=== PATIENT | male | born 1955 | race Caucasian/White ===

== ENCOUNTER 2018-07-03 00:24 | Inpatient (IN) | payer BC ==
[~2018-07-03] VITALS: Ht 180.3 cm; Wt 182.1 kg
[2018-07-03] MEDS: LACTATED RINGER'S 1,000 ML IV SCH
[2018-07-03] MEDS ORDERED: KETOROLAC TROMETHAMINE 30 MG/ML VIAL IV STA (00:35)
[2018-07-03] MEDS ORDERED: SODIUM CHLORIDE 0.9% 1000ML 1,000 ML IV STA (00:35)
[2018-07-03] MEDS ORDERED: DONNATAL/LIDOCAINE/MAALOX 30 ML SUSP PO SCH (01:00)
[2018-07-03 01:12] LABS: BASOPHILS % 0.2 % (0.0-1.0); HEMATOCRIT 45.9 % (38.2-49.6); HEMOGLOBIN 14.2 g/dL (14.0-18.0); LYMPHOCYTES # (AUTO) 0.7 (1.0-3.2); LYMPHOCYTES % 7.4 % (18.0-39.1); MEAN CORPUSCULAR HEMOGLOBIN 27.2 pg (28-32); MEAN CORPUSCULAR HGB CONC 30.9 g/dL (31-35); MEAN CORPUSCULAR VOLUME 87.8 fL (81-99); MONOCYTES # (AUTO) 0.5 (0.2-0.8); MONOCYTES % 4.8 % (4.4-11.3); NEUTROPHILS # (AUTO) 8.6 (2.1-6.9); NEUTROPHILS % 87.4 % (38.7-80.0); PLATELET COUNT 247 x10e3/uL (140-360); RED BLOOD COUNT 5.23 x10e6/uL (4.3-5.7); RED CELL DISTRIBUTION WIDTH 15.9 % (11.7-14.4)
[2018-07-03 01:20] LABS: CLARITY,URINE CLEAR (CLEAR); COLOR,URINE YELLOW (YELLOW); LEUKOCYTE ESTERASE ,URINE NEGATIVE (NEGATIVE); NITRITE,URINE NEGATIVE (NEGATIVE); PROTEIN,URINE DIPSTICK NEGATIVE (NEGATIVE)
[2018-07-03 01:21] LABS: BILIRUBIN,URINE NEGATIVE (NEGATIVE); KETONES,URINE NEGATIVE (NEGATIVE); URINE UROBILINOGEN 0.2 mg/dL (0.2 - 1)
[2018-07-03 01:33] LABS: ALANINE AMINOTRANSFERASE 117 IU/L (0-55); ALBUMIN 3.9 g/dL (3.5-5.0); ALBUMIN/GLOBULIN RATIO 1.2 (0.8-2.0); ALKALINE PHOSPHATASE 99 IU/L (40-150); ANION GAP 17.5 mmol/L (8-16); BLOOD UREA NITROGEN 22 mg/dL (7-26); BUN/CREATININE RATIO 17 (6-25); CALCIUM 9.9 mg/dL (8.4-10.2); CARBON DIOXIDE 22 mmol/L (22-29); CHLORIDE 105 mmol/L (98-107); CREATINE KINASE 118 IU/L (30-200); CREATININE, SERUM 1.29 mg/dL (0.72-1.25); EST GLOMERULAR FILTRATION RATE 56 ML/MIN (60-); GLUCOSE 160 mg/dL (74-118); POTASSIUM 4.5 mmol/L (3.5-5.1); SODIUM 140 mmol/L (136-145)
[2018-07-03] MEDS ORDERED: BELLADONNA ALK/PHENOBARBITAL 5 ML UDC ONE (01:44)
[2018-07-03] MEDS ORDERED: LIDOCAINE VISC 2% SOLN 15 ML UDC ONE (01:44)
[2018-07-03] MEDS ORDERED: MAGNESIUM/ALUMINUM/SIMETHICONE 30 ML UDC ONE (01:45)
[2018-07-03 01:47] LABS: LIPASE > 1200 U/L (8-78)
[2018-07-03 01:50] LABS: BACTERIA,URINE RARE /HPF; EPITHELIAL CELLS,URINE RARE /LPF; RBC,URINE 0-5 /HPF (0-5); WBC,URINE (MAN) 0-5 /HPF (0-5)
[2018-07-03] MEDS ORDERED: ONDANSETRON HCL INJ 2 MG/ML VIAL IV STA (01:51)
--- NOTE | 2018-07-03 02:00 | NUR ---
PT TO CT AT THIS TIME.
[2018-07-03] MEDS ORDERED: IOPAMIDOL 370 MG/ML 200 ML INFUS..BTL INJ ONE (02:35)
[2018-07-03] MEDS ORDERED: SODIUM CHLORIDE 0.9% 50ML 50 ML ONE (02:35)
--- NOTE | 2018-07-03 02:39 | Diagnostic Imaging Report ---
EXAM: CT ABDOMEN AND PELVIS with IV CONTRAST DATE: 07/03/2018 12:35 AM Time stamp on Exam: 0223 hours INDICATION: Abdominal pain, diarrhea COMPARISON: None TECHNIQUE: The abdomen and pelvis were scanned using a multidetector helical scanner. Coronal and sagittal reformations were obtained. Dose modulation, iterative reconstruction, and/or weight based adjustment of the mA/kV was utilized to reduce the radiation dose to as low as reasonably achievable. Routine protocol performed. IV Contrast: 100 cc Isovue-370 Oral Contrast: None FINDINGS: LOWER THORAX: No consolidations LIVER: No masses BILIARY: Small layering gallstones. SPLEEN: No masses PANCREAS: Edematous pancreas with adjacent inflammation. No organized fluid collections. ADRENALS: No nodules KIDNEYS: Symmetric perfusion. No enhancing masses. No hydronephrosis. GI TRACT: No distention, wall thickening or evidence of obstruction. Reactive changes of the duodenum. VESSELS: Unremarkable PERITONEUM/RETROPERITONEUM: No free air or fluid LYMPH NODES: No lymphadenopathy REPRODUCTIVE ORGANS: Unremarkable BLADDER: Unremarkable SOFT TISSUES: Unremarkable BONES: No suspicious bone lesions. IMPRESSION: Acute interstitial edematous pancreatitis. Cholelithiasis. Signed by: Dr. Anastasiia Dunlap M.D. on 07/03/2018 2:36 AM
--- OUTSIDE RECORDS SUMMARY | 2018-07-03 03:06 | XMS REPORT ---
Author Author [facility] Address Unknown Phone Unavailable Care Team Providers Care Director Inbound Sales Name Role Phone Francine CUTLER Unavailable Unavailable Problems This patient has no known problems. Allergies, Adverse Reactions, Alerts This patient has no known allergies or adverse reactions. Medications This patient has no known medications. Results Test Description Test Time Test Comments Text Results Atomic Results Result Comments CT ABDOMEN/PELVIS W 2018-07-03 02:30:00 [place] [address] Patient Name: NUSRAT JENNINGS MR #: [id number] : 1955 Age/Sex: 62/M Req #: [id number] Adm Physician: Ordered by: NORMA CUTLER MD Report #: [id number] Location: ER Room/Bed: Procedure: [id number] CT/CT ABDOMEN/PELVIS W Exam Date: 07/03/18 Exam Time: 0205 REPORT STATUS: Signed EXAM: CT ABDOMEN AND PELVIS with IV CONTRAST DATE: 09/03/2017 12:35 AM Time stamp on Exam: 0223 hours INDICATION: Abdominal pain, diarrhea COMPARISON: None TECHNIQUE: The abdomen and pelvis were scanned using a multidetector helical scanner. Coronal and sagittal reformations were obtained. Dose modulation, iterative reconstruction, and/or weight based adjustment of the mA/kV was utilized to reduce the radiation dose to as low as reasonably achievable. Routine protocol performed. IV Contrast: 100 cc Isovue-370 Oral Contrast: None FINDINGS: LOWER THORAX: No consolidations LIVER: No masses BILIARY: Small layering gallstones. SPLEEN: No masses PANCREAS: Edematous pancreas with adjacent inflammation. No organized fluid collections. ADRENALS: No nodules KIDNEYS: Symmetric perfusion. No enhancing masses. No hydronephrosis. GI TRACT: No distention, wall thickening or evidence of obstruction. Reactive changes of the duodenum. VESSELS: Unremarkable PERITONEUM/RETROPERITONEUM: No free air or fluid LYMPH NODES: No lymphadenopathy REPRODUCTIVE ORGANS: Unremarkable BLADDER: Unremarkable SOFT TISSUES: Unremarkable BONES: No suspicious bone lesions. IMPRESSION: Acute interstitial edematous pancreatitis. Cholelithiasis. Signed by: Dr. Lashonda Dunlap M.D. on 07/03/2018 2:36 AM Dictated By: LASHONDA DUNLAP MD 5 Transcribed By: NITHIN on 07/03/18235 COPY TO: NORMA CUTLER MD
[2018-07-03] MEDS ORDERED: SODIUM CHLORIDE 0.9% 1000ML 1,000 ML ONE (03:41)
[2018-07-03] MEDS: LEVOFLOXACIN 500MG/D5W 100ML IV SCH (03:46)
[2018-07-03] MEDS: SODIUM CHLORIDE 0.9% 1000ML 1,000 ML IV SCH ×3 (05:00→21:41)
[2018-07-03] MEDS ORDERED: FENTANYL CITRATE/PF 100MCG/2 ML INJ ONE (05:47)
[2018-07-03] MEDS ORDERED: FENTANYL CITRATE/PF 100MCG/2 ML INJ IV ONE (06:00)
--- NOTE | 2018-07-03 07:03 | NUR ---
RECEIVED REPORT FROM ROMERO HARRINGTON FOR CONTINUATION OF CARE
--- NOTE | 2018-07-03 08:00 | NUR ---
PATIENT COMPLAINING OF PAIN 5-6/10. NO PAIN MEDS ORDERED AT THIS TIME. WILL CALL MD FOR ORDERS. PT AMBULATED TO THE RESTROOM FOR A BM WITH CANE
--- NOTE | 2018-07-03 09:15 | NUR ---
2ND CALL PLACED TO DR. FLOYD REGARDING AN ORDER FOR PAIN MEDICINE. PT AWARE PENDING RETURN CALL FROM DR. FLOYD AT THIS TIME.
--- NOTE | 2018-07-03 09:27 | NUR ---
FINALLY REACHED DR. Micheal FLOYD FOR PAIN MED ORDERS. NEW ORDERS FOR PAIN AND NAUSEA MEDS.
[2018-07-03] MEDS ORDERED: HYDROMORPHONE 2MG/ML 2 MG/ML ML IV PRN (09:30)
--- NOTE | 2018-07-03 09:31 | NUR ---
SPOKE TO DR. Francine FLOYD AND RECEIVED PHONE ORDER FOR PAIN AND NAUSEA MED. ORDERS IN EMR. INFORMED BHARAT RN PRIMARY NURSE OF THE NEW ORDERS.
[2018-07-03] MEDS: ONDANSETRON HCL INJ 2 MG/ML VIAL IV PRN ×2 (09:45→18:52)
[2018-07-03] MEDS ORDERED: VYVANSE70 MG PO (10:36)
[2018-07-03] MEDS ORDERED: CRESTOR10 MG PO (10:36)
[2018-07-03] MEDS ORDERED: LISINOPRIL2.5 MG PO (10:36)
[2018-07-03] MEDS ORDERED: MONTELUKAST SOD10 MG PO (10:36)
[2018-07-03] MEDS ORDERED: METFORMIN HCL500 MG PO (10:36)
[2018-07-03] MEDS ORDERED: BENZONATATE100 MG PO (10:36)
[2018-07-03] MEDS ORDERED: VALACYCLOVIR500 MG PO (10:36)
--- NOTE | 2018-07-03 11:23 | NUR ---
rec'd pt in walking rounds with aicha tom. CALL PLACED TO DR. Micheal Saavedra for ordrs for this pt.; awaiting c/b.
--- NOTE | 2018-07-03 11:32 | NUR ---
no orders rec'd from dr. codi leavitt; has not seen the pt. yet.
[2018-07-03] MEDS: HYDROMORPHONE 2MG/ML 2 MG/ML ML IV PRN ×2 (13:25→18:52)
--- NOTE | 2018-07-03 14:01 | NUR ---
[facility] TECH AT [facility]
[2018-07-03] MEDS ORDERED: ROCURONIUM BROMIDE 10 MG/ML 5ML VIAL ONE (14:20)
[2018-07-03] MEDS ORDERED: ONDANSETRON HCL INJ 2 MG/ML VIAL ONE (14:20)
[2018-07-03] MEDS ORDERED: NEOSTIGMINE 5 MG/5ML SYR ONE (14:20)
[2018-07-03] MEDS ORDERED: LIDOCAINE HCL 2% LOCAL INJ 5 ML SDV VIAL INJ ONE (14:20)
[2018-07-03] MEDS ORDERED: SEVOFLURANE INHAL SOLN 250 ML PEN BTL ONE (14:20)
[2018-07-03] MEDS ORDERED: SUCCINYLCHOLINE 200 MG/10 ML SYR ONE (14:20)
[2018-07-03] MEDS ORDERED: GLYCOPYRROLATE INJ 1MG/ 5 ML SYR ONE (14:20)
[2018-07-03] MEDS ORDERED: DEXAMETHASONE SOD PHOS INJ 4 MG/ML VIAL ONE (14:20)
[2018-07-03] MEDS ORDERED: PROPOFOL IV EMULSION 10 MG/ML 20 ML VIAL ONE (14:20)
--- NOTE | 2018-07-03 15:41 | Diagnostic Imaging Report ---
EXAM: Right upper quadrant abdominal ultrasound INDICATION: Right upper quadrant pain COMPARISON: CT Abdomen/Pelvis 07/03/18. TECHNIQUE: Transverse and longitudinal images of the right upper quadrant abdomen were obtained FINDINGS: Somewhat limited due to patient's body habitus and bowel gas. Liver: Size: 16.6 cm in the right midclavicular line Appearance: Increased echogenicity, smooth contour Mass: No focal masses Gallbladder: Gallbladder sludge. No evidence of pericholecystic fluid, wall thickening, or reported sonographic Wallcae's sign. Gallbladder wall measures 0.3 cm. Bile Ducts: Intrahepatic Ducts: No dilatation Extrahepatic Ducts: Common bile duct measures 0.3 cm, no dilatation Pancreas: Echogenic appearance. Kidney: The right kidney measures 12.6 cm without evidence of hydronephrosis or stone. Vessels: Aorta: Proximal and distal portion obscured by bowel gas. Mid portion appears unremarkable. Inferior Vena Cava: Visualized portions are normal Main Portal Vein: Obscured by bowel gas. Free Fluid: No evidence of ascites. IMPRESSION: Hepatomegaly with hepatic steatosis. Gallbladder sludge without sonographic evidence of cholecystitis. Echogenic appearance of the pancreas, corresponding to CT findings of acute pancreatitis. Signed by: Dr. Jerrica Hurst MD on 07/03/2018 3:37 PM
[2018-07-03] MEDS ORDERED: DEXTROSE 50% SYRINGE 50 ML IV PRN (16:00)
--- NOTE | 2018-07-03 16:23 | NUR ---
1st attempt to call report. not able to receive pt/report at this time. told to c/b in 20 min.
[2018-07-03] MEDS: INSULIN REGULAR, HUMAN 100 UNIT/1 ML 3ML VIAL SQ SCH ×2 (16:30→19:50)
--- NOTE | 2018-07-03 16:52 | NUR ---
2nd attempt to call report; still not able to recieve pt/report
[2018-07-03 18:21] VITALS: BP 154/61
--- NOTE | 2018-07-03 18:53 | NUR ---
RECEIVED CARE OF PATIENT FROM ER. PATIENT IS AAOX3. PATIENT C/O 4/10 ABDOMINAL PAIN. MEDICATED WITH DILAUDID AND ZOFRAN PER EMAR. PATIENT ORIENTED TO ROOM AND UNIT. BED LOCKED AND IN LOW POSITION. CALL LIGHT WITHIN EASY REACH. INSTRUCTED TO CALL FOR ASSISTANCE NEEDED. PATIENT ON CPAP AT HOME. CALL MADE TO RT TO BRING CPAP MACHINE. UPDATED PT ON PLAN OF CARE.
[2018-07-03 19:00] VITALS: BP 157/75
[2018-07-03 20:55] VITALS: BP 157/75
[2018-07-04] VITALS (9 sets, daily range): BP systolic 119–165; BP diastolic 57–75
[2018-07-04] MEDS: LEVOFLOXACIN 500MG/D5W 100ML IV SCH (02:30)
[2018-07-04] MEDS: LACTATED RINGER'S 1,000 ML IV SCH ×7 (04:00→21:18)
[2018-07-04] MEDS: HYDROMORPHONE 2MG/ML 2 MG/ML ML IV PRN ×6 (04:48→21:20)
[2018-07-04] MEDS: ONDANSETRON HCL INJ 2 MG/ML VIAL IV PRN ×6 (04:48→21:20)
[2018-07-04 05:36] LABS: BASOPHILS % 0.1 % (0.0-1.0); EOSINOPHILS % 0.1 % (0.0-6.0); HEMATOCRIT 44.7 % (38.2-49.6); HEMOGLOBIN 13.4 g/dL (14.0-18.0); LYMPHOCYTES % 6.5 % (18.0-39.1); MEAN CORPUSCULAR HEMOGLOBIN 26.9 pg (28-32); MEAN CORPUSCULAR VOLUME 89.8 fL (81-99); MONOCYTES % 6.3 % (4.4-11.3); NEUTROPHILS # (AUTO) 13.6 (2.1-6.9); NEUTROPHILS % 86.4 % (38.7-80.0); PLATELET COUNT 233 x10e3/uL (140-360); RED BLOOD COUNT 4.98 x10e6/uL (4.3-5.7); RED CELL DISTRIBUTION WIDTH 16.7 % (11.7-14.4)
[2018-07-04 05:59] LABS: ALANINE AMINOTRANSFERASE 68 IU/L (0-55); ALBUMIN 3.3 g/dL (3.5-5.0); ALKALINE PHOSPHATASE 85 IU/L (40-150); ANION GAP 13.9 mmol/L (8-16); BLOOD UREA NITROGEN 15 mg/dL (7-26); BUN/CREATININE RATIO 13 (6-25); CARBON DIOXIDE 26 mmol/L (22-29); CHLORIDE 108 mmol/L (98-107); CREATININE, SERUM 1.13 mg/dL (0.72-1.25); EST GLOMERULAR FILTRATION RATE > 60 ML/MIN (60-); GLUCOSE 105 mg/dL (74-118); LIPASE 290 U/L (8-78); POTASSIUM 3.9 mmol/L (3.5-5.1); SODIUM 144 mmol/L (136-145)
--- NOTE | 2018-07-04 06:40 | NUR ---
SPOKE TO DR. Ascencion KNIGHT FOR NEW CONSULT
[2018-07-04] MEDS: INSULIN REGULAR, HUMAN 100 UNIT/1 ML 3ML VIAL SQ SCH ×4 (07:23→19:54)
--- NOTE | 2018-07-04 10:38 | NUR ---
Notified by radiology at this time that patient's weight is over the 350 pound max for the MRI machine. Awaiting return call from Dr. Maldonado.
--- NOTE | 2018-07-04 16:50 | Progress Note ---
DATE: INTERNAL MEDICINE PROGRESS NOTE SUBJECTIVE: The patient is complaining of abdominal pain. He was going for MRCP, but it could not be done due to his large size. He could not fit in the MRI machine. Dr. Willy Maldonado is on the case. He wants to rule out choledocholithiasis. PHYSICAL EXAM VITAL SIGNS: Blood pressure is 148/66, temperature 98.8, heart rate 78 per minute, respiratory rate is 20 per minute, and oxygen saturation 93%. He weighs 368 pounds. HEART: Regular rhythm. Normal S1 and S2 sounds. LUNGS: Clear bilaterally. ABDOMEN: Soft. He had right upper quadrant tenderness. LAB DATA: On the BMP; sodium 144, potassium 3.9, chloride 108, CO2 26, BUN 15, creatinine 1.13, and glucose 105. On the CBC; white blood count is elevated at 15,700, hemoglobin 13.4, hematocrit 44.7, and platelet count 233,000. AST 32, ALT 68, total bilirubin 1.9, alkaline phosphatase 85. Also we have a CT of the abdomen and pelvis, which showed acute interstitial edematous pancreatitis and cholelithiasis. He has gallstones in the biliary system also. He also had gallbladder ultrasound, which show hepatomegaly with hepatic steatosis. Gallbladder/without cholecystitis, echogenic appearance of the pancreas with CT findings of acute pancreatitis. FINAL IMPRESSION 1. Acute most likely gallstone pancreatitis. 2. Hypertension. 3. Uncontrolled diabetes mellitus type 2. PLAN OF TREATMENT: Continue IV fluids n.p.o. status, Levaquin 500 mg IV once a day, Zofran 4 mg IV q.4 hours, Dilaudid 2 mg IV q.3 hours. Monitor blood sugar q.[address] Willy Maldonado is on the case for gastroenterology. He might do an ERCP. He suspect that he is a high suspicion for choledocholithiasis. Dr. Ray Narayan is on the case also for surgery in case that he needed a cholecystectomy. Lipase is back to normal. Job#: [id number] KAMERON
[2018-07-04] MEDS: PIPER-TAZ 3.375 GM 50 ML IV SCH (18:25)
[2018-07-05] VITALS (7 sets, daily range): BP systolic 113–166; BP diastolic 57–72
[2018-07-05] MEDS: HYDROMORPHONE 2MG/ML 2 MG/ML ML IV PRN ×6 (00:15→23:44)
[2018-07-05] MEDS: LACTATED RINGER'S 1,000 ML IV SCH ×7 (00:31→23:44)
[2018-07-05] MEDS: PIPER-TAZ 3.375 GM 50 ML IV SCH ×5 (00:31→23:44)
[2018-07-05 05:03] LABS: BASOPHILS % 0.2 % (0.0-1.0); EOSINOPHILS # (AUTO) 0.1 (0.0-0.4); EOSINOPHILS % 0.3 % (0.0-6.0); HEMATOCRIT 41.7 % (38.2-49.6); HEMOGLOBIN 12.5 g/dL (14.0-18.0); LYMPHOCYTES % 6.5 % (18.0-39.1); MEAN CORPUSCULAR HEMOGLOBIN 27.2 pg (28-32); MEAN CORPUSCULAR VOLUME 90.8 fL (81-99); MONOCYTES % 6.3 % (4.4-11.3); NEUTROPHILS # (AUTO) 13.6 (2.1-6.9); NEUTROPHILS % 86.3 % (38.7-80.0); PLATELET COUNT 205 x10e3/uL (140-360); RED BLOOD COUNT 4.59 x10e6/uL (4.3-5.7); RED CELL DISTRIBUTION WIDTH 16.7 % (11.7-14.4)
[2018-07-05 05:22] LABS: ALANINE AMINOTRANSFERASE 43 IU/L (0-55); ALBUMIN 2.9 g/dL (3.5-5.0); ALBUMIN/GLOBULIN RATIO 0.9 (0.8-2.0); ALKALINE PHOSPHATASE 76 IU/L (40-150); ANION GAP 13.7 mmol/L (8-16); BLOOD UREA NITROGEN 12 mg/dL (7-26); BUN/CREATININE RATIO 11 (6-25); CALCIUM 8.9 mg/dL (8.4-10.2); CARBON DIOXIDE 26 mmol/L (22-29); CHLORIDE 106 mmol/L (98-107); CREATININE, SERUM 1.11 mg/dL (0.72-1.25); EST GLOMERULAR FILTRATION RATE > 60 ML/MIN (60-); GLUCOSE 105 mg/dL (74-118); POTASSIUM 3.7 mmol/L (3.5-5.1); SODIUM 142 mmol/L (136-145)
[2018-07-05] MEDS: ONDANSETRON HCL INJ 2 MG/ML VIAL IV PRN ×4 (06:05→20:38)
[2018-07-05] MEDS: INSULIN REGULAR, HUMAN 100 UNIT/1 ML 3ML VIAL SQ SCH ×4 (07:30→21:00)
[2018-07-05] MEDS: PANTOPRAZOLE 40 MG 10ML VIAL IV SCH (08:07)
--- NOTE | 2018-07-05 15:32 | Progress Note ---
DATE: INTERNAL MEDICINE PROGRESS NOTE SUBJECTIVE: Patient is doing well, less pain in his abdomen. PHYSICAL EXAM VITAL SIGNS: Blood pressure 128/64, temperature 98.8, heart rate 72 per minute, respiratory rate 20 per minute, oxygen saturation 95%. HEART: Regular rhythm. Normal S1, S2 sounds. LUNGS: Clear bilaterally. ABDOMEN: Soft. Minimal tenderness in the right upper quadrant. LABS: On the BMP; sodium 142, potassium 3.7, chloride 106, CO2 26, BUN 12, creatinine 1.11, and glucose 105. On the CBC; white blood count 15,700, hemoglobin 12.5, hematocrit 41.7, and platelet count 205,000. AST 20, ALT 43, total bilirubin is 3.3, alkaline phosphatase is 76, and lipase is 79. FINAL IMPRESSION 1. Acute gallstone pancreatitis. 2. Hypertension. 3. Diabetes mellitus type 2, which is uncontrolled. PLAN OF TREATMENT: Continue n.p.o. Continue IV fluids. Continue Zosyn 3.375 g IV q.6 hours. Lactated ringer's which we are going to decrease. We are going to change to D5 half normal saline at 80 mL an hour. Continue Zofran 4 mg IV q.4 hours, Dilaudid 2 mg IV q.3 hours. Monitor blood sugar q.6 hours. Protonix 40 mg daily. We are going to repeat the CMP and CBC and lipase level tomorrow. Dr. Willy Maldonado is seeing the patient. The patient could not tolerate to have MRCP due to her size. Dr. Willy Maldonado will continue following the case to see for further intervention. Dr. Ray Narayan surgeon is following the case from the surgical point of view. He will evaluate the patient for possible cholecystectomy or laparotomy. Job#: [id number] KAMERON
[2018-07-05] MEDS ORDERED: DIPHENHYDRAMINE HCL INJ 50 MG/ML VIAL IV PRN (18:00)
[2018-07-06] VITALS (8 sets, daily range): BP systolic 137–163; BP diastolic 62–83
[2018-07-06] MEDS: LACTATED RINGER'S 1,000 ML IV SCH ×4 (03:59→11:45)
[2018-07-06 05:13] LABS: BASOPHILS % 0.3 % (0.0-1.0); EOSINOPHILS # (AUTO) 0.2 (0.0-0.4); EOSINOPHILS % 1.6 % (0.0-6.0); HEMATOCRIT 41.9 % (38.2-49.6); HEMOGLOBIN 12.3 g/dL (14.0-18.0); LYMPHOCYTES # (AUTO) 1.2 (1.0-3.2); LYMPHOCYTES % 8.2 % (18.0-39.1); MEAN CORPUSCULAR HGB CONC 29.4 g/dL (31-35); MEAN CORPUSCULAR VOLUME 92.1 fL (81-99); MONOCYTES # (AUTO) 0.9 (0.2-0.8); MONOCYTES % 6.4 % (4.4-11.3); NEUTROPHILS # (AUTO) 12.2 (2.1-6.9); NEUTROPHILS % 82.7 % (38.7-80.0); PLATELET COUNT 204 x10e3/uL (140-360); RED BLOOD COUNT 4.55 x10e6/uL (4.3-5.7); RED CELL DISTRIBUTION WIDTH 16.3 % (11.7-14.4)
[2018-07-06 05:36] LABS: ALANINE AMINOTRANSFERASE 36 IU/L (0-55); ALBUMIN 2.8 g/dL (3.5-5.0); ALBUMIN/GLOBULIN RATIO 0.8 (0.8-2.0); ALKALINE PHOSPHATASE 73 IU/L (40-150); ANION GAP 12.3 mmol/L (8-16); BLOOD UREA NITROGEN 11 mg/dL (7-26); BUN/CREATININE RATIO 10 (6-25); CARBON DIOXIDE 27 mmol/L (22-29); CHLORIDE 105 mmol/L (98-107); CREATININE, SERUM 1.05 mg/dL (0.72-1.25); EST GLOMERULAR FILTRATION RATE > 60 ML/MIN (60-); GLUCOSE 95 mg/dL (74-118); POTASSIUM 3.3 mmol/L (3.5-5.1); SODIUM 141 mmol/L (136-145)
[2018-07-06] MEDS: HYDROMORPHONE 2MG/ML 2 MG/ML ML IV PRN (05:57)
[2018-07-06] MEDS: PIPER-TAZ 3.375 GM 50 ML IV SCH ×3 (05:57→17:38)
[2018-07-06] MEDS: ONDANSETRON HCL INJ 2 MG/ML VIAL IV PRN (05:57)
[2018-07-06] MEDS: INSULIN REGULAR, HUMAN 100 UNIT/1 ML 3ML VIAL SQ SCH ×4 (07:30→21:00)
[2018-07-06] MEDS: PANTOPRAZOLE 40 MG 10ML VIAL IV SCH (08:12)
[2018-07-06] MEDS ORDERED: BUPIVACAINE 0.5%/EPI 30 ML SDV INJ ONE (10:28)
--- NOTE | 2018-07-06 10:33 | NUR ---
Patient off the unit to OR at this time.
[2018-07-06] MEDS ORDERED: IOPAMIDOL 610MG/1ML 300 MG/ML VIAL IV ONE (11:49)
--- NOTE | 2018-07-06 12:00 | NUR ---
Pt down in OR for a procedure at this time.
[2018-07-06] MEDS ORDERED: HYDROMORPHONE 1MG/1ML INJ IV PRN (13:30)
[2018-07-06] MEDS ORDERED: FENTANYL CITRATE/PF 100MCG/2 ML INJ ONE ×2 (13:37→14:12)
[2018-07-06] MEDS ORDERED: HYDROMORPHONE 2MG/ML 2 MG/ML ML IV PRN (13:45)
[2018-07-06] MEDS ORDERED: KETOROLAC TROMETHAMINE 30 MG/ML VIAL ONE (13:56)
[2018-07-06] MEDS ORDERED: ACETAMINOPHEN 1000 MG/100 ML 100 ML IV ONE (14:11)
[2018-07-06] MEDS ORDERED: MIDAZOLAM HCL 2 MG/2 ML VIAL ONE (14:12)
--- NOTE | 2018-07-06 16:00 | Operative Report ---
DATE OF PROCEDURE: July 06, 2018 PREOPERATIVE DIAGNOSIS: Cholecystitis, cholelithiasis and gallstone pancreatitis, rule out common bile duct stones. POSTOPERATIVE DIAGNOSIS: Cholecystitis, cholelithiasis, gallstone pancreatitis. No choledocholithiasis. OPERATION PERFORMED: Laparoscopic cholecystectomy with intraoperative cholangiogram. FORMING PRESS OPERATOR: THOMPSON Harry. ANESTHESIA: General. COMPLICATIONS: None. ESTIMATED BLOOD LOSS: Minimal. DESCRIPTION OF PROCEDURE: With the patient lying in bed in the supine position under good general endotracheal anesthesia, the abdomen was prepped with Betadine solution and draped in the usual manner. A Veress needle was introduced into the right upper quadrant and pneumoperitoneum was established without any difficulty. A 5 mm trocar was placed in the right subcostal region and a 5 mm video laparoscope was placed into the intraabdominal cavity. Video laparoscopy at this point revealed no adhesions to the subumbilical space. An 11 mm trocar was then placed into the umbilicus and a 10 mm video laparoscope was placed into the intraabdominal cavity. Under direct vision, 2 more 5 mm trocars were placed in the right subcostal region and an extra 5 mm trocar was placed in the left upper abdomen to retract redundant transverse colon. Video laparoscopy at this point revealed a gallbladder that was distended and thick walled. It was covered with adhesions. There was some fatty infiltration of the liver. Otherwise the rest the abdominal exploration was within normal limits. All of the adhesions to the gallbladder were then slowly and carefully taken down. The peritoneum overlying the neck of the gallbladder was then opened and the cystic duct was identified. The cystic duct was then dissected to its junction with the common duct. Cystic duct was then circumferentially dissected and a clip was placed at the neck of the gallbladder. An opening was then made into the cystic duct and a cholangiocath was introduced using fluoroscopy. Half-strength dye was then introduced into the biliary tree. It did show free flow of dye into the duodenum and no retained common duct stones. The cholangiocatheter was then removed and the cystic duct was doubly clipped and divided. The cystic artery was similarly doubly clipped and divided. The gallbladder was then slowly and carefully taken off the liver bed using the cautery scissors and perfect hemostasis was ascertained. The gallbladder was then grasped through the umbilical port and removed without any difficulty. Video laparoscopy was then again carried out. Liver bed was found to perfectly dry. All of the excess fluid was aspirated. The pneumoperitoneum was evacuated and all the trocars were removed under direct vision. The midline fascia at the umbilicus was then closed with a [id number] of 0 Vicryl. All layers were infiltrated on the way out with solution of 1/4 percent Marcaine. Subcutaneous tissue was approximated with 3-0 Vicryl and the skin was closed with subcuticular 5-0 Vicryl. Benzoin, Steri-Strips and Band-Aids were applied. The sponge, lap and needle count was correct. Patient tolerated the procedure well and returned to the recovery room in stable condition. Job#: [id number]
[2018-07-06] MEDS: SODIUM CHLORIDE 0.9% 1000ML 1,000 ML IV SCH (16:46)
--- NOTE | 2018-07-06 20:15 | NUR ---
PATIENT RESTING IN BED WITH HIS C-PAP ON, NO RESPIRATORY DISTRESS OBSERVED. DRESSINGS INTACT TO THE ABDOMINAL INCISION SITES, NO PAIN VOICED. CALL LIGHT WITHIN EASY REACH, INSTRUCTED TO CALL FOR ASSISTANCE NEEDED.
[2018-07-07] MEDS: PIPER-TAZ 3.375 GM 50 ML IV SCH ×3 (00:58→12:32)
[2018-07-07] MEDS: SODIUM CHLORIDE 0.9% 1000ML 1,000 ML IV SCH ×3 (01:05→10:25)
[2018-07-07] MEDS: HYDROCODONE/APAP 7.5MG-325MG 1 EA TAB PO PRN ×2 (01:06→10:25)
--- NOTE | 2018-07-07 01:07 | NUR ---
PATIENT C/O PAIN TO THE ABDOMEN WITH PAIN SCORE #7, MEDICATED WITH NORCO 1TAB ORDERED. CALL LIGHT AND URINAL IN EASY REACH, INSTRUCTED TO CALL FOR ASSISTANCE NEEDED.
--- NOTE | 2018-07-07 02:56 | NUR ---
WALKING ROUNDS MADE, PATIENT CONTINUE TO C/O ABDOMINAL PAIN. MEDICATED WITH DILAUDID 1MG ORDERED, PATIENT INSTRUCTED TO CALL FOR ASSISTANCE UPON GETTING OUT OF THE BED DUE TO SIDE EFFECT FROM THE MEDICATION.
[2018-07-07 04:51] LABS: BASOPHILS % 0.4 % (0.0-1.0); EOSINOPHILS # (AUTO) 0.3 (0.0-0.4); EOSINOPHILS % 2.2 % (0.0-6.0); HEMATOCRIT 37.7 % (38.2-49.6); HEMOGLOBIN 11.6 g/dL (14.0-18.0); LYMPHOCYTES # (AUTO) 1.1 (1.0-3.2); LYMPHOCYTES % 10.2 % (18.0-39.1); MEAN CORPUSCULAR HEMOGLOBIN 27.1 pg (28-32); MEAN CORPUSCULAR HGB CONC 30.8 g/dL (31-35); MEAN CORPUSCULAR VOLUME 88.1 fL (81-99); MONOCYTES # (AUTO) 0.8 (0.2-0.8); NEUTROPHILS # (AUTO) 8.9 (2.1-6.9); NEUTROPHILS % 79.8 % (38.7-80.0); PLATELET COUNT 227 x10e3/uL (140-360); RED BLOOD COUNT 4.28 x10e6/uL (4.3-5.7)
[2018-07-07 05:58] VITALS: BP 140/63
--- NOTE | 2018-07-07 06:34 | NUR ---
PATIENT AMBULATING IN THE ROOM, HE C/O MILD ABDOMINAL GAS DISCOMFORT.
[2018-07-07 06:55] LABS: ALANINE AMINOTRANSFERASE 34 IU/L (0-55); ALBUMIN 2.5 g/dL (3.5-5.0); ALBUMIN/GLOBULIN RATIO 0.8 (0.8-2.0); ALKALINE PHOSPHATASE 63 IU/L (40-150); AMYLASE 43 U/L (25-125); ANION GAP 11.8 mmol/L (8-16); BLOOD UREA NITROGEN 12 mg/dL (7-26); BUN/CREATININE RATIO 11 (6-25); CALCIUM 8.6 mg/dL (8.4-10.2); CARBON DIOXIDE 28 mmol/L (22-29); CHLORIDE 107 mmol/L (98-107); CREATININE, SERUM 1.05 mg/dL (0.72-1.25); EST GLOMERULAR FILTRATION RATE > 60 ML/MIN (60-); GLUCOSE 114 mg/dL (74-118); POTASSIUM 3.8 mmol/L (3.5-5.1); SODIUM 143 mmol/L (136-145)
[2018-07-07] MEDS: INSULIN REGULAR, HUMAN 100 UNIT/1 ML 3ML VIAL SQ SCH ×2 (07:30→11:30)
[2018-07-07 08:01] VITALS: BP 142/67
[2018-07-07 08:19] VITALS: BP 142/67
[2018-07-07] MEDS: PANTOPRAZOLE 40 MG 10ML VIAL IV SCH (08:40)
[2018-07-07] MEDS ORDERED: LISINOPRIL 2.5 MG TAB PO SCH (09:00)
[2018-07-07] MEDS ORDERED: MAGNESIUM HYDROXIDE 30 ML UDC PO ONE (09:45)
[2018-07-07 12:15] VITALS: BP 143/65
[2018-07-07] MEDS ORDERED: BENZONATATE 100 MG CAP PO PRN (13:00)
[2018-07-07] MEDS ORDERED: TYLENOL WITH C1 EACH PO (14:57)
[2018-07-07] MEDS ORDERED: KEFLEX500 MG PO (14:58)
[2018-07-07] MEDS ORDERED: METFORMIN HCL 500 MG TAB PO SCH (17:00)
[2018-07-07] MEDS ORDERED: SIMVASTATIN 20 MG TAB PO SCH (21:00)
[2018-07-07] MEDS ORDERED: MONTELUKAST SODIUM 10 MG TAB PO SCH (21:00)
[2018-07-08] MEDS ORDERED: SIMVASTATIN 40 MG TAB PO SCH (09:00)
[2018-07-08] MEDS ORDERED: LISDEXAMFETAMINE DIMESYLATE 70 MG PO SCH (09:00)
--- NOTE | 2018-07-10 08:19 | Diagnostic Imaging Report ---
Exam: Intraoperative cholangiogram dated 07/06/2018. History: Acute pancreatitis with gallstones Comparison: CT scan of the abdomen and pelvis dated 07/03/2018 Findings: Cannulation of the cystic duct remnant has been performed. Contrast injection shows normal caliber of the intra and extrahepatic bile ducts. No retained stones or filling defects are identified. There is free spill into the duodenum. A total of 7 films were obtained and saved to the medical record. Fluoroscopy time and total dose not specified. Impression: Intraoperative cholangiogram as described above. Signed by: Dr. Wally Evans DO on 07/10/2018 8:16 AM
== END 2018-07-07 15:31 | disposition home or self-care (01) | DRG 418 ==
LOC: ER 00:24 → ERHOLD 03:02 → INTOOBSV 03:02 → OBSVTOIN 15:11 → MED/SURG2 18:09
PROC: BF101ZZ Fluoroscopy of Bile Ducts using Low Osmolar Contrast (ICD-10-PCS; 2018-07-06)
PROC: 0FT44ZZ Resection of Gallbladder, Percutaneous Endoscopic Approach (ICD-10-PCS; principal; 2018-07-06 13:00)
DX: K85.10 Biliary acute pancreatitis without necrosis or infection (principal); K80.10 Calculus of gallbladder with chronic cholecystitis without obstruction; Z68.43 Body mass index [BMI] 50.0-59.9, adult; E66.01 Morbid (severe) obesity due to excess calories; I10 Essential (primary) hypertension; E11.65 Type 2 diabetes mellitus with hyperglycemia; K76.0 Fatty (change of) liver, not elsewhere classified; Z79.84 Long term (current) use of oral hypoglycemic drugs
CPT/HCPCS: 36415; 74177; 74300; 76705; 80053; 81001; 82150; 82550; 82553; 82948; 83605; 83690; 84478; 84484; 85025; 88304; 93005; 94660; 96367; 96374; 96375; 96376; 99284; C1766; J1100; J1200; J1885; J1956; J2001; J2250; J2405; J2543; J7030; J7120; Q9967

== ENCOUNTER 2022-04-15 15:46 | Emergency (ER) | payer MEDICARE ==
[~2022-04-15] VITALS: Ht 180.3 cm; Wt 181.9 kg
[~2022-04-15 15:46] MED LIST: BENZONATATE100 MG PO; CRESTOR10 MG PO; KEFLEX500 MG PO; LISINOPRIL2.5 MG PO; METFORMIN HCL500 MG PO; MONTELUKAST SOD10 MG PO; TYLENOL WITH C1 EACH PO; VALACYCLOVIR500 MG PO; VYVANSE70 MG PO
[2022-04-15] MEDS ORDERED: BENZONATATE200 MG PO (16:12)
[2022-04-15] MEDS ORDERED: PROAIR HFA INH8.5 GM PO (16:12)
== END 2022-04-15 16:15 | disposition home or self-care (01) ==
LOC: ER 15:50
DX: R05.9 Cough, unspecified (principal); U07.1 COVID-19; I10 Essential (primary) hypertension; E11.9 Type 2 diabetes mellitus without complications; K76.9 Liver disease, unspecified; G47.30 Sleep apnea, unspecified; F90.9 Attention-deficit hyperactivity disorder, unspecified type; Z96.653 Presence of artificial knee joint, bilateral
CPT/HCPCS: 99283

== ENCOUNTER 2024-10-27 19:51 | Emergency (ER) | payer MEDICARE ==
[~2024-10-27] VITALS: Ht 180.3 cm; Wt 181.9 kg
[~2024-10-27 19:51] MED LIST changes: +BENZONATATE200 MG PO; +PROAIR HFA INH8.5 GM PO
[2024-10-27 19:59] VITALS: TEMP 98.3
[2024-10-27] MEDS ORDERED: MONTELUKAST SOD10 MG PO (20:22)
[2024-10-27] MEDS ORDERED: LISINOPRIL5 MG PO (20:22)
[2024-10-27] MEDS ORDERED: VENTOLIN HFA18 GM INH (20:22)
[2024-10-27] MEDS ORDERED: JARDIANCE10 MG PO (20:22)
[2024-10-27] MEDS ORDERED: NEURONTIN300 MG PO (20:22)
[2024-10-27] MEDS ORDERED: ROSUVASTATIN CAL5 MG PO (20:22)
[2024-10-27] MEDS ORDERED: TRADJENTA5 MG PO (20:22)
[2024-10-27] MEDS ORDERED: VALTREX1000 MG PO (20:22)
[2024-10-27] MEDS ORDERED: PRILOSEC OTC20 MG PO (20:22)
[2024-10-27] MEDS ORDERED: WELCHOL625 MG PO (20:22)
[2024-10-27] MEDS ORDERED: NAPROXEN250 MG PO (20:22)
[2024-10-27] MEDS ORDERED: FLONASE ALLERG9.9 ML INH (20:22)
[2024-10-27 20:30] VITALS: PULSE 67; RESP 18
[2024-10-27] MEDS ORDERED: BACITRACIN ZINC 0.9GM TP ONE (20:50)
[2024-10-27] MEDS: BACITRACIN ZINC 15 GM OINT TOP STA (21:02)
[2024-10-27 21:04] VITALS: BP 144/80; O2SAT 99
== END 2024-10-27 21:01 | disposition home or self-care (01) ==
LOC: ER 20:32
DX: L76.22 Postprocedural hemorrhage of skin and subcutaneous tissue following other procedure (principal); I10 Essential (primary) hypertension; E11.9 Type 2 diabetes mellitus without complications; I48.91 Unspecified atrial fibrillation; E78.5 Hyperlipidemia, unspecified; K76.9 Liver disease, unspecified; G47.30 Sleep apnea, unspecified; F90.9 Attention-deficit hyperactivity disorder, unspecified type; Z96.653 Presence of artificial knee joint, bilateral
CPT/HCPCS: 99284